=== PATIENT | female | born 1985 | race Caucasian/White ===

== ENCOUNTER → 2018-09-27 | Outpatient (CLI) | payer OTHER ==
[~2018-09-27] MED LIST: MOTRIN 600600 MG/TAB PO; PERCOCET 325 MG1 TA2 PO; PRENATAL1 TA1 PO; SENOKOT S 50 MG1 TAB PO; SLOW FE45 MG PO; ZANTAC 7575 MG PO
== END ==
LOC: MC.RAD 12:58
DX: N63.12 Unspecified lump in the right breast, upper inner quadrant (principal)